=== PATIENT | male | born 1990 ===

== ENCOUNTER 2019-12-15 14:35 | Emergency (ER) | payer OTHER ==
[~2019-12-15] VITALS: Ht 175.3 cm; Wt 72.6 kg
== END 2019-12-15 17:31 | disposition home or self-care (01) ==
LOC: ER 14:35
DX: S61.220A Laceration with foreign body of right index finger without damage to nail, initial encounter (principal); W26.8XXA Contact with other sharp object(s), not elsewhere classified, initial encounter; Y93.89 Activity, other specified; Y92.89 Other specified places as the place of occurrence of the external cause; Y99.8 Other external cause status